=== PATIENT | female | born 2000 | race Caucasian/White ===

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

== ENCOUNTER → 2018-01-01 | Outpatient (CLI) | payer BC ==
--- NOTE | 2018-01-01 12:50 | US ---
EXAMINATION TYPE: US abdomen complete DATE OF EXAM: 01/01/2018 COMPARISON: NONE CLINICAL HISTORY: Abdominal Pain R10.84. EXAM MEASUREMENTS: Liver Length: 11.8 cm Gallbladder Wall: 0.1 cm CBD: 0.1 cm Spleen: 9.7 cm Right Kidney: 11.1x 3.4 x 3.6 cm Left Kidney: 10.6 x 4.3 x 3.8 cm Pancreas: wnl Liver: wnl Gallbladder: wnl Evidence for sonographic Stern's sign: No CBD: wnl Spleen: wnl Right Kidney: wnl Left Kidney: wnl Upper IVC: wnl Abd Aorta: wnl The liver is homogenous. The intrahepatic portion of the IVC and proximal abdominal aorta are within normal limits. There is no evidence of cholelithiasis. Common bile duct is unremarkable. The visu alized portions of the pancreas are homogenous. The spleen is unremarkable. Kidneys are symmetric a nd free of hydronephrosis. No renal lesions are seen. IMPRESSION: Unremarkable abdominal ultrasound. No sonographic evidence of cholelithiasis or acute cho lecystitis.
--- NOTE | 2018-01-01 13:25 | US ---
EXAMINATION TYPE: US pelvis complete transvag DATE OF EXAM: 01/01/2018 COMPARISON: NONE CLINICAL HISTORY: Abdominal Pain R10.84. TECHNIQUE: Transvaginal (TV) and Transabdominal (TA) . Transabdominal sonographic images of the pel vis were acquired. Transvaginal sonographic images were medically necessary to better assess the fol lowing anatomy: better visualization uterus Date of LMP: 12/16/2017 EXAM MEASUREMENTS: Uterus: 7.7 x 2.5 x 4.2 cm Endometrial Stripe: 0.5 cm Right Ovary: 2.2 x 1.2 x 2.2 cm Left Ovary: 2.2 x 1.9 x 1.4 cm 1. Uterus: Anteverted cervical area 1.2 x 0.8 x 1.1 cm echogenic structure 2. Endometrium: wnl 3. Right Ovary: Follicular changes 4. Left Ovary: Nuclear changes 5. Bilateral Adnexa: wnl 6. Posterior cul-de-sac: free fluid 2.5 cm IMPRESSION: 1. Posterior cervical 0.2 cm lesion. Although no vascular stalk is appreciated this could represent a polyp or mass and direct visualization is recommended. 2. Scant amount of free fluid, likely physiologic in nature. Bilateral ovarian follicles are also lik dior physiologic.
== END | disposition home or self-care (01) ==
LOC: RADUSWWP 10:08
PROVIDERS: ATTEND Family Medicine
DX: N88.8 Other specified noninflammatory disorders of cervix uteri (principal); R10.84 Generalized abdominal pain
CPT/HCPCS: 76700; 76830; 76856

== ENCOUNTER → 2018-12-30 | Outpatient (CLI) | payer BC ==
[2018-12-31 02:15] LABS: Shrimp IgE <0.10 kU/L; Walnut IgE (Food) <0.10 kU/L
[2018-12-31 13:36] LABS: Beef IgE <0.35 kU/L (<0.35); Beef IgE Class CLASS 0; Crab IgE <0.35 kU/L (<0.35); Crab IgE Class CLASS 0; Lettuce IgE Class CLASS 0; Pork IgE Class CLASS 0; Salmon IgE <0.35 kU/L (<0.35); Salmon IgE Class CLASS 0
[2018-12-31 13:37] LABS: Onion IgE <0.35 kU/L (<0.35); Onion IgE Class CLASS 0; Yeast Bakers/Brew IgE <0.35 kU/L (<0.35)
[2018-12-31 13:38] LABS: Apple IgE Class CLASS 0; Celery IgE <0.35 kU/L (<0.35); Celery IgE Class CLASS 0; Chicken IgE Class CLASS 0; Gluten IgE Class CLASS 0; Lobster IgE <0.35 kU/L (<0.35); Lobster IgE Class CLASS 0
[2018-12-31 13:39] LABS: Avocado Class CLASS 0; Banana IgE Class CLASS 0; Chocolate IgE Class CLASS 0; Coffee IgE <0.35 kU/L (<0.35); Coffee IgE Class CLASS 0; Cow's Milk IgE Class CLASS 0; Egg White IgE <0.35 kU/L (<0.35); Hazelnut IgE <0.35 kU/L (<0.35); Hazelnut IgE Class CLASS 0; Kiwi IgE <0.35 kU/L (<0.35); Latex IgE Class CLASS 0; Peanut IgE <0.35 kU/L (<0.35); Potato IgE <0.35 kU/L (<0.35); Potato IgE Class CLASS 0; Soybean IgE <0.35 kU/L (<0.35); Tea IgE <0.35 kU/L (<0.35)
== END | disposition home or self-care (01) ==
LOC: LABWHC1 16:07
PROVIDERS: ATTEND Nurse Practitioner Family
DX: L50.0 Allergic urticaria (principal)
CPT/HCPCS: 36415; 86001; 86003

== ENCOUNTER → 2021-07-11 | Outpatient (CLI) | payer OTHER ==
[2021-07-11 18:34] LABS: Basophils # (A) 0.02 X 10*3/uL (0.00-0.10); Basophils % (A) 0.3 %; Eosinophils # (A) 0.07 X 10*3/uL (0.04-0.35); Eosinophils % (A) 1.2 %; HCT 44.9 % (37.2-46.3); Immature Grans, Automated 0.3 %; Lymphocytes # (A) 1.37 X 10*3/uL (0.90-5.00); Lymphocytes % (A) 22.9 %; MCH 29.8 pg (27.0-32.0); MCHC 33.4 g/dL (32.0-37.0); MCV 89.1 fL (80.0-97.0); Mean Platelet Volume 11.5 fL (9.5-12.2); NRBC Per 100 WBC 0 /100 WBCS (0.0-0.0); Neutrophils % (A) 70.3 %; Platelet Count 203 X 10*3/uL (140-440); RBC 5.04 X 10*6/uL (4.10-5.20); RDW 12.2 % (11.5-14.5); WBC 5.98 X 10*3/uL (4.50-10.00)
[2021-07-12 01:27] LABS: Follicle Stimulating Hormone 5.3 mIU/mL; T4, Free (Free Thyroxine) 1.01 ng/dL (0.800-1.800)
[2021-07-12 01:41] LABS: African American GFR (CKD) 123.2 (60.0-200.0); Albumin/Globulin Ratio 2.12 (1.60-3.17); Anion Gap 12.5 mmol/L (10.00-18.00); BUN/Creat Ratio 12.68 Ratio (12.00-20.00); Calcium 9.7 mg/dL (8.7-10.3); Carbon Dioxide 23.6 mmol/L (20.0-27.5); Globulin 2.3 g/dL (1.6-3.3); Non-African American GFR(CKD) 106.3 (60.0-200.0); Potassium 4.2 mmol/L (3.5-5.5); Total Bilirubin 2.3 mg/dL (0.30-1.20); Total Protein 7.3 g/dL (6.2-8.2)
== END | disposition home or self-care (01) ==
LOC: LABWHC1 12:19
PROVIDERS: ATTEND Physician Assistant
DX: N92.6 Irregular menstruation, unspecified (principal); R53.83 Other fatigue; R19.7 Diarrhea, unspecified
CPT/HCPCS: 36415; 80053; 83001; 84439; 84443; 85025

== ENCOUNTER → 2023-08-29 | Outpatient (CLI) | payer OTHER ==
[2023-08-29 18:04] LABS: Basophils # (A) 0.04 X 10*3/uL (0.00-0.10); Basophils % (A) 0.3 %; Eosinophils % (A) 1.7 %; HCT 39.5 % (37.2-46.3); HGB 13.3 g/dL (12.0-15.0); Lymphocytes # (A) 1.43 X 10*3/uL (0.90-5.00); Lymphocytes % (A) 12.1 %; MCHC 33.7 g/dL (32.0-37.0); MCV 92.1 FL (80.0-97.0); Mean Platelet Volume 11.5 FL (9.5-12.2); Monocytes % (A) 5.1 %; NRBC Per 100 WBC 0 X 10*3/uL (0.00-0.01); Neutrophils # (A) 9.46 X 10*3/uL (1.80-7.70); Neutrophils % (A) 79.7 %; Platelet Count 169 X 10*3/uL (140-440); RBC 4.29 X 10*6/uL (4.10-5.20); RDW 13.2 % (11.5-14.5); WBC 11.86 X 10*3/uL (4.50-10.00)
[2023-08-29 18:29] LABS: ALT 14 U/L (8-44); AST 20 U/L (13-35); Albumin 3.9 g/dL (3.8-4.9); Alkaline Phosphatase 86 U/L (41-126); Blood Urea Nitrogen 7.8 mg/dL (9.0-27.0); Calcium 9.5 mg/dL (8.7-10.3); Carbon Dioxide 18.6 mmol/L (21.6-31.8); Chloride 104 mmol/L (96-109); Globulin 2.6 g/dL (1.6-3.3); Glucose 109 mg/dL (70-110); Potassium 3.8 mmol/L (3.5-5.5); Sodium 136 mmol/L (135-145); Total Bilirubin 0.7 mg/dL (0.3-1.2); Total Protein 6.5 g/dL (6.2-8.2)
== END | disposition home or self-care (01) ==
LOC: LABWHC1 12:36
PROVIDERS: ATTEND Obstetrics & Gynecology
DX: I45.6 Pre-excitation syndrome (principal); R00.2 Palpitations; R53.83 Other fatigue; R06.02 Shortness of breath; R42 Dizziness and giddiness; R00.0 Tachycardia, unspecified
CPT/HCPCS: 36415; 80053; 84443; 85025; 93005

== ENCOUNTER 2023-11-26 10:35 | Inpatient (IN) | payer OTHER ==
[2023-11-26] MEDS ORDERED: LIDOCAINE 0.5% (PF) 5 MG/ML (50 ML SDV) SQ PRN (11:13)
[2023-11-26] MEDS ORDERED: TERBUTALINE 1 MG/ML VIAL SQ PRN (11:13)
[2023-11-26] MEDS ORDERED: TRANEXAMIC 1,000 MG/100ML-NACL 1,000 MG in EMPTY BAG 1 BAG IV PRN (11:13)
[2023-11-26] MEDS ORDERED: miSOPROStoL 200 MCG TAB RECTAL PRN (11:13)
[2023-11-26] MEDS ORDERED: CARBOPROST TROMETHAMINE 250 MCG/ML 1 ML AMP IM PRN (11:13)
[2023-11-26] MEDS ORDERED: miSOPROStoL 200 MCG TAB PO PRN (11:13)
[2023-11-26] MEDS ORDERED: OXYTOCIN 10 UNIT/ML 1 ML VIAL IM PRN (11:13)
[2023-11-26] MEDS ORDERED: METHYLERGONOVINE 0.2 MG/ML 1 ML AMP IM PRN (11:13)
[2023-11-26] MEDS: LACTATED RINGERS 1,000 ML IV SCH ×2 (11:28→20:10)
[2023-11-26 11:29] LABS: Basophils % (A) 0 %; Eosinophils # (A) 0.2 k/uL (0-0.7); Eosinophils % (A) 1 %; HCT 43.5 % (34.0-46.0); Lymphocytes # (A) 1.5 k/uL (1.0-4.8); Lymphocytes % (A) 14 %; MCH 31.8 pg (25.0-35.0); MCHC 34.5 g/dL (31.0-37.0); MCV 92.1 fL (80.0-100.0); Mean Platelet Volume 10.2; Monocytes # (A) 0.5 k/uL (0-1.0); Monocytes % (A) 4 %; Neutrophils # (A) 8.8 k/uL (1.3-7.7); Neutrophils % (A) 80 %; Platelet Count 152 k/uL (150-450); RBC 4.72 m/uL (3.80-5.40); RDW 13.1 % (11.5-15.5); WBC 11.1 k/uL (3.8-10.6)
[2023-11-26] MEDS ORDERED: fentaNYL (PF) 50 MCG/ML 5 ML AMP ONE (12:05)
[2023-11-26] MEDS ORDERED: ROPIVACAINE 5 MG/ML 30 ML VIAL ONE (12:05)
[2023-11-26] MEDS ORDERED: SODIUM CHLORIDE 0.9% 250 ML BAG ONE (12:05)
--- NOTE | 2023-11-26 12:10 | P.HPOB ---
History of Present Illness H&P Date: 11/26/23 Chief Complaint: labor Ms. Garibay is a 23 year old at 40 weeks and 2 days with EDC of 11/24/23 who presents with regular uterine contractions and is found to be in active labor. Hr has been complicated by maternal anxiety and depression for which she has taken Zoloft 50mg daily throughout the . The fetus is estimated to be in the 40%ile for growth based on a 32w5d ulttrasound. work-up: blood type O positive, antibody screen negative, rubella immune, VDRL non-reactive, HBsAg negative, HIV negative, HCV Ab non-reactive, gonorrhea negative, chlamydia negative, 1 hour GTT wnl, GBS negative. 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 History of Any Multi-Drug Resistant Organisms: None Reported Past Surgical History: Tonsillectomy Past Anesthesia/Blood Transfusion Reactions: No Reported Reaction Past Psychological History: Anxiety, Depression Smoking Status: Never smoker Past Alcohol Use History: None Reported Past Drug Use History: None Reported - Past Family History Mother Family Medical History: No Reported History Medications and Allergies Home Medications Medication Instructions Recorded Confirmed Type Omeprazole [PriLOSEC] 1 tab PO DAILY 11/26/23 11/26/23 History Vit No.179/Iron/Folic 1 tab PO DAILY 11/26/23 11/26/23 History [ Tablet] Sertraline [Zoloft] 1 tab PO DAILY 11/26/23 11/26/23 History Allergies Allergy/AdvReac Type Severity Reaction Status Date / Time No Known Allergies Allergy Verified 11/26/23 10:50 Exam Vital Signs Temp Pulse Resp BP Pulse Ox 11/26/23 11:45 97.3 F L 78 18 125/83 97 11/26/23 11:12 97.3 F L 78 18 125/83 97 Intake and Output 11/25/23 11/26/23 11/26/23 22:59 06:59 14:59 Other: Weight 79.379 kg Focused physical exam is performed. This is a healthy-appearing in no apparent distress. Breathing is non-labored. Abdomen is gravid and non-tender. Cervical exam is deferred as the patient is in the position to receive epidural anesthesia at this time. Per recent OB nurse exam she is dilated to 6cm. Extremities non-tender and non-edematous. heart tones are Category I and tocometer is graphing contractions every 2-4 minutes. Results Result Diagrams: 11/26/23 11:19 Abnormal Lab Results - Last 24 Hours (Table) 11/26/23 Range/Units 11:19 WBC 11.1 H (3.8-10.6) k/uL Neutrophils # 8.8 H (1.3-7.7) k/uL Assessment and Plan Assessment: 23 year old at 40 weeks and 2 day presenting in spontaneous active labor Plan: Admit, epidural prn, EFM and tocometer, anticipate vaginal delivery.
[2023-11-26] MEDS: OXYTOCIN 30 UNITS/500 ML NS 30 UNIT in SALINE 1 500ML.BAG IV SCH (18:04)
[2023-11-26] MEDS: CITRIC ACID-SODIUM CITRATE 15 ML CUP PO ONE (18:59)
[2023-11-26] MEDS ORDERED: MORPHINE SULFATE (PF) 0.3 MG/0.3 ML SYR ONE (19:06)
[2023-11-26] MEDS ORDERED: MIDAZOLAM 2 MG/2 ML VIAL ONE (19:06)
[2023-11-26] MEDS ORDERED: fentaNYL (PF) 50 MCG/ML 2 ML AMP ONE (19:06)
[2023-11-26] MEDS ORDERED: KETOROLAC 15 MG/ML 1 ML VIAL ONE (19:06)
[2023-11-26] MEDS ORDERED: OXYTOCIN 30 UNITS/500 ML NS BAG IV ONE (19:06)
[2023-11-26] MEDS ORDERED: NALOXONE 0.4 MG/ML 1 ML VIAL IV PRN ×2 (19:44→20:11)
[2023-11-26] MEDS ORDERED: NALBUPHINE 10 MG/ML (10 ML MDV) IV PRN (19:44)
[2023-11-26] MEDS ORDERED: diphenhydrAMINE 50 MG/ML 1 ML VIAL IVP PRN ×3 (19:44→20:11)
[2023-11-26] MEDS ORDERED: ONDANSETRON 4 MG/2 ML VIAL IVP PRN ×2 (19:44→20:11)
[2023-11-26] MEDS: AZITHROMYCIN 500 MG in SODIUM CHLORIDE 0.9% 250 ML IVPB STA (20:10)
[2023-11-26] MEDS ORDERED: diphenhydrAMINE 25 MG CAP PO PRN (20:11)
[2023-11-26] MEDS ORDERED: ZOLPIDEM 5 MG TAB PO PRN (20:11)
[2023-11-26] MEDS ORDERED: diphenhydrAMINE 50 MG CAP PO PRN (20:11)
[2023-11-26] MEDS ORDERED: METOCLOPRAMIDE 5 MG/ML 2 ML VIAL IVP PRN (20:11)
--- NOTE | 2023-11-26 20:11 | P.OP ---
Date of Procedure: 11/26/23 Preoperative Diagnosis: 1. Term IUP at 40 weeks gestation 2. Persistent Category II Heart Tones 3. intolerance to pushing Postoperative Diagnosis: 1. Term IUP at 40 weeks gestation 2. Persistent Category II Heart Tones 3. intolerance to pushing 4. Occult cord prolapse Procedure(s) Performed: Primary Lower Transverse Section Implants: None Anesthesia: local Surgeon: Juany Mata Rn Medical Surgical #1: Lorena Miranda Estimated Blood Loss (ml): 916 Urine output (ml): 300 (alfonso colored) Pathology: none sent Condition: stable Disposition: floor Indications for Procedure: Ms. Garibay is a 23 year old at 40 weeks and 2 days gestation who presented to labor and delivery in active labor. She was expectantly managed and did make slow change to 9 cm over the course of an afternoon. The fetus did begin to have recurrent late and variable decelerations which improved with repositioning and IV fluids. The patient did eventually reach complete, however with every pushing effort the fetus would have prolonged decelerations down to the 70s. We had a patient centered huddle during which time section was recommended for maternal and safety at this time. The risks, benefits, and alternatives to section were discussed with the patient including risk of bleeding, infection, damage to surrounding structures including bladder/bowels/ureters, and post-operative VTE. The patient understands these risks and desires to proceed with section. Operative Findings: Occult cord prolapse was noted after hysterotomy. Clear amniotic fluid appreciated. Viable male in cephalic presentation with significant caput. Apgars are pending. Weight 8 pounds and 6 ounces. Normal uterus, bilateral fallopian tubes, and ovaries. Description of Procedure: The patient was taken back to the operating room where spinal anesthesia was found to be adequate. Two grams of Ancef were given for infection prophylaxis. Vaginal preparation was done. She was prepared and draped in the dorsal supine position with a leftward tilt. A Pfannenstiel skin incision was made with the scalpel. The incision was carried down to the fascia with a bovie. The fascia was incised and extended laterally with Toledo scissors. The superior aspect of the fascia was grasped with the Michael clamps. The underlying rectus muscle was dissected off sharply with Toledo scissors. In a similar fashion, the inferior aspect of the fascia was elevated with Michael clamps and the rectus muscle and pyramidalis were dissected off. Excellent hemostasis was achieved with the bovie. The rectus muscle was in the midline down to the level of the pubic symphysis. Pre-peritoneal fatty tissue was bluntly dissected to expose the peritoneum. The peritoneum was found to be free of adherent bowel and entered sharply with Toledo scissors. The peritoneal incision was extended superiorly and inferiorly to the bladder reflection with good visualization of the bladder. The bladder blade was inserted and vesicouterine peritoneum was identified. Intraabdominal survey revealed scant, clear peritoneal fluid and the thinned-out lower uterine segment. The vesicouterine peritoneum was opened with scissors and the bladder flap was developed. The bladder blade was repositioned to keep the bladder out of the operative field. The lower uterine segment was incised with a scalpel. Clear fluid was noted. The uterine incision was extended bluntly with lateral and upward traction. The fetus was in cephalic presentation. The head was elevated out of the pelvis with special attention paid to avoid using the uterine incision as a fulcrum. Gentle fundal pressure was applied once the head was brought into the incision. The was delivered with no difficulty and was noted to be crying spontaneously. The mouth and nose were suctioned with a bulb. The cord was clamped and cut. The infant was handed off to the flitch hanger. IV oxytocin was initiated to facilitate uterine contractions. The placenta was delivered intact with manual massage of uterine fundus. The uterus was then exteriorized and the inside of the uterus was gently wiped with a lap sponge to assure complete removal of placental membranes. The uterine incision was closed with 0-Vicryl suture in a running locked fashion. A second imbricating layer was placed with 0-Vicryl. The ovaries and tubes were found to be normal. The uterus, tubes, and ovaries were then gently returned to the abdominal cavity. The abdomen was copiously suction irrigated. The uterine incision was reinspected and excellent hemostasis was noted. The fascial layer was closed with a 0-Vicryl suture. The subcutaneous tissue was reapproximated with 2-0 Plain Gut. The skin was closed with 4-0 Monocryl in a subcuticular fashion.The patient tolerated the procedure well. All the counts were correct times two. The patient was taken to the recovery room in a stable condition. A physician surgical services coordinator was utilized for the entire procedure due to the need for tissue retraction, dissection of vital structures, prevention and management of blood loss, and reduction in overall operative and anesthesia time as is the standard of care.
[2023-11-26] MEDS ORDERED: MORPHINE PCA 50 MG/50 ML BAG IV PRN (20:17)
[2023-11-26] MEDS: ACETAMINOPHEN TAB 500 MG TAB PO SCH (22:05)
[2023-11-27] MEDS: KETOROLAC 15 MG/ML 1 ML VIAL IVP SCH (01:35)
[2023-11-27] MEDS: IBUPROFEN 600 MG TAB PO SCH (02:53)
[2023-11-27 05:59] LABS: Basophils % (A) 0 %; Eosinophils % (A) 0 %; HCT 35.4 % (34.0-46.0); HGB 12.3 gm/dL (11.4-16.0); Lymphocytes # (A) 1.6 k/uL (1.0-4.8); Lymphocytes % (A) 9 %; MCH 32.1 pg (25.0-35.0); MCHC 34.8 g/dL (31.0-37.0); MCV 92.2 fL (80.0-100.0); Mean Platelet Volume 11.5; Monocytes # (A) 0.9 k/uL (0-1.0); Monocytes % (A) 5 %; Neutrophils % (A) 85 %; Platelet Count 128 k/uL (150-450); RBC 3.85 m/uL (3.80-5.40); RDW 13.5 % (11.5-15.5); WBC 17.7 k/uL (3.8-10.6)
[2023-11-27] MEDS: SENNOSIDES-DOCUSATE SODIUM 1 EACH TAB PO SCH (07:53)
--- NOTE | 2023-11-27 10:58 | P.PNOBGPC ---
Subjective - Subjective Principal diagnosis: s/p primary section Interval history: The patient is doing well this morning and had no acute events overnight. She has no complaints this morning. She reports minimal lochia, ambulating, and eating/drinking without nausea or vomiting. She has yet to void after valadez catheter removal. She is her infant without difficulty. She denies chest pain, shortness of breathing, fevers, or chills overnight. She denies pain or swelling in the legs. Patient reports: Reports appetite normal, Reports pain well controlled, Reports ambulating normally : doing well Objective - Vital Signs Latest vital signs: Vital Signs Temp Pulse Resp BP Pulse Ox 11/27/23 10:00 16 11/27/23 08:00 98.5 F 68 16 103/63 98 11/27/23 04:30 98.1 F 89 15 113/71 95 11/27/23 00:21 90 15 11/26/23 23:55 98.6 F 90 15 121/73 95 11/26/23 22:00 98.2 F 99 16 116/55 98 11/26/23 21:45 98 16 116/55 95 11/26/23 21:30 98 16 122/58 96 11/26/23 21:15 98 15 122/58 98 11/26/23 21:00 98.0 F 92 16 119/57 96 11/26/23 20:45 85 16 125/67 95 11/26/23 20:30 109 H 15 118/75 99 11/26/23 20:21 16 11/26/23 20:15 97.8 F 87 16 130/74 99 11/26/23 20:00 97.8 F 127 H 16 121/72 100 11/26/23 11:45 97.3 F L 78 18 125/83 97 11/26/23 11:12 97.3 F L 78 18 125/83 97 Intake and Output 11/26/23 11/27/23 11/27/23 22:59 06:59 14:59 Intake Total 440 Output Total 1736 1400 Balance -1296 -1400 Intake: Oral 440 Output: Urine 600 1400 Uretheral (Valadez) 500 Emesis 100 Estimated Blood Loss 916 Output, Quantitative 120 Blood Loss Other: Voiding Method Indwelling Catheter Indwelling Catheter - Exam Extremities: Present: normal Abdomen: Present: normal appearance, aortic enlargement Incision: Present: normal, dry, dressed Uterus: Present: normal, firm - Labs Labs: Abnormal Lab Results - Last 24 Hours (Table) 11/26/23 11/27/23 Range/Units 11:19 05:42 WBC 11.1 H 17.7 H (3.8-10.6) k/uL Plt Count 128 L (150-450) k/uL Neutrophils # 8.8 H 15.0 H (1.3-7.7) k/uL Assessment and Plan Assessment: 23 year old PPD#1 s/p Primrary 2/2 persistent Category II FHTs and intolerance of pushing Plan: 1. Post-operative. Patient meeting all post-op milestones appropriately. Continue to monitor for void. 2. Viable male infant. Doing well at bedside, well. s/p circumcision. Dispo: Anticipate discharge home tomorrow
--- NOTE | 2023-11-27 11:14 | P.PN ---
Progress Note - Text Progress Note Date: 11/27/23 Postoperative day 1 status post section under epidural anesthesia, and epidural morphine given for postoperative analgesia, patient doing well, there is no anesthesia related complications, Patient had no headache, vital signs stable , Assessment and plan= postop day 1 status post , doing well there is no anesthesia related complication.
[2023-11-28] MEDS: SIMETHICONE 80 MG CHEWABLE PO PRN (00:09)
[2023-11-28 00:17] VITALS: RESP 16
[2023-11-28 07:58] VITALS: BP 120/87; PULSE 91; TEMP 98.7
--- NOTE | 2023-11-28 08:29 | P.DS ---
Providers Date of admission: 11/26/23 10:53 Expected date of discharge: 11/28/23 Attending physician: Juany Mata MD Primary care physician: Stated None Hospital Course: Ms. Garibay is a 23 year old now POD#2 s/p primary section for persistent category II FHTs remote from delivery and intolerance to pushing. The patient is doing well this morning and had no acute events overnight. She has no complaints this morning. She reports minimal lochia, passing flatus, voiding without difficulty, ambulating, and eating/drinking without nausea or vomiting. doing well at bedside, s/p circumcision. She denies chest pain, shortness of breathing, fevers, or chills overnight. She denies pain or swelling in the legs. Postoperative restrictions are reviewed with the patient including pelvic rest for 6 weeks, no lifting heavier than 15 pounds for 6 weeks. The patient is encouraged to call the office if she experiences any heavy bleeding, foul-smelling discharge, breast complaints, or any if she has any other concerns. She will follow up in the office with n 2 weeks for postoperative exam. She will go home with motrin, tylenol, and a 3-day supply of Oxycodone. All questions are answered. Assessment: 23 year old POD#1 s/p primary Patient Condition at Discharge: Good Plan - Discharge Summary New Discharge Prescriptions: New polyethylene glycoL 3350 [Miralax] 17 gm PO DAILY PRN #527 gm PRN Reason: Constipation Ibuprofen [Motrin] 600 mg PO Q6HR PRN #30 tab PRN Reason: Mild Pain (Scale 1 To 3) oxyCODONE HCL [Roxicodone] 5 mg PO Q6HR PRN 3 Days #12 tab PRN Reason: Breakthrough Pain Acetaminophen Tab [Tylenol] 650 mg PO Q6H PRN #30 tab PRN Reason: Mild Pain (Scale 1 To 3) No Action Sertraline [Zoloft] 1 tab PO DAILY Vit No.179/Iron/Folic [ Tablet] 1 tab PO DAILY Omeprazole [PriLOSEC] 1 tab PO DAILY Discharge Medication List Omeprazole [PriLOSEC] 1 tab PO DAILY 11/26/23 [History] Vit No.179/Iron/Folic [ Tablet] 1 tab PO DAILY 11/26/23 [History] Sertraline [Zoloft] 1 tab PO DAILY 11/26/23 [History] Acetaminophen Tab [Tylenol] 650 mg PO Q6H PRN #30 tab 11/28/23 [Rx] Ibuprofen [Motrin] 600 mg PO Q6HR PRN #30 tab 11/28/23 [Rx] oxyCODONE HCL [Roxicodone] 5 mg PO Q6HR PRN 3 Days #12 tab 11/28/23 [Rx] polyethylene glycoL 3350 [Miralax] 17 gm PO DAILY PRN #527 gm 11/28/23 [Rx] Follow up Appointment(s)/Referral(s): Juany Mata MD [STAFF PHYSICIAN] - 12/10/23 2:30 pm (Post appointment 01-07-2024 at 1:15pm) Activity/Diet/Wound Care/Special Instructions: Instructions 1. Do not begin any exercise program for 3 weeks. 2. Do not resume sexual relations for 6 weeks or longer if uncomfortable. 3. You may take tub baths or showers at any time. 4. You may use tampons if desired after 6 weeks. 5. Keep any areas repaired with stitches clean and dry. 6. If you are not nursing, wear a good fitting, supportive bra during the day and limit fluid intake for at least 1 week to prevent breast engorgement. 7. Call the office, , within the next week to make appointment for your 6 week checkup if it has not already been made. 8. Report any of the following occurrences to the doctor promptly: a. Heavy, excessive bleeding b. Chills, fever c. Burning or frequency of urination d. Pain or redness and breasts if nursing e. Increasing pain or swelling of vulva (stitches). In addition to the above instructions, the following additional should be followed: 1. No heavy lifting or straining (exercising) until after 6 week checkup. 2. Keep abdominal incision clean and dry: You may wear a dressing if more comfortable. 3. Make office appointment for 2 weeks after delivery date. Discharge Disposition: HOME SELF-CARE
== END 2023-11-28 15:30 | disposition home or self-care (01) | DRG 540 ==
LOC: FBPOP 10:35 → 4FBP 10:53
PROVIDERS: ADMIT Obstetrics & Gynecology; ATTEND Obstetrics & Gynecology
PROC: 10D00Z1 Extraction of Products of Conception, Low, Open Approach (ICD-10-PCS; principal; 2023-11-26 19:42)
DX: O48.0 Post-term pregnancy (principal); F32.A Depression, unspecified; O76 Abnormality in fetal heart rate and rhythm complicating labor and delivery; O69.0XX0 Labor and delivery complicated by prolapse of cord, not applicable or unspecified; O99.344 Other mental disorders complicating childbirth; F41.9 Anxiety disorder, unspecified; Z37.0 Single live birth; Z3A.40 40 weeks gestation of pregnancy; Z79.899 Other long term (current) drug therapy

== ENCOUNTER → 2024-05-29 | Outpatient (CLI) | payer OTHER ==
[2024-05-29 08:32] VITALS: BP 126/84; PULSE 77; RESP 17; TEMP 98.9
--- NOTE | 2024-05-29 09:02 | P.GSCN ---
History of Present Illness Consult date: 05/29/24 Requesting physician: Juany Mata History of present illness: Areli is a 23 year old female seen in consultation for Maty Jefferson regarding a left breast mass. She had an ultrasound on 05-09-24 which revealed an ill defined mass at 8:00 3 by 1 by 2.7 cm in size. The patient was seen by her supervisor carpenters and treated with antibiotics for a 2 cm lesion which decreased in size but did not go away completely. She noticed this about 1 months ago and was treated with two courses of antibiotics, Augmentin. She is breast feeding. Her baby is 6 months. With the antibiotics the lump shrunk but it did not go away, the pain was less on the antibiotics. The lump is still present and not as painful. She continues to breast-feed without difficulty, at times it does feel like on the left-sided it is pulling towards the lump. She has not noted any blood or change in the milk. Caffiene: 1 cup doffee/day nicotine: none chocolate: none BCP: used when she was on it for about 10 years for irregular periods note 05-15-24 Maty Jefferson reviewed Family History: none Hormonal History: menarche: 10 , breast feeding yes age at : 23 periods has not started them again since Surgical History: tonsil Medical History; none Social History; nicotine: none used to vape alcohol: none drugs: none Review of Systems - Constitutional Denies fever, Denies weight loss - EENT Eyes: denies blurred vision Ears: deny: decreased hearing, tinnitus Ears, nose, mouth and throat: Denies dysphagia - Breasts bilateral: as per HPI - Cardiovascular Denies chest pain, Denies shortness of breath - Respiratory Denies cough, Denies 7 - Gastrointestinal Reports as per HPI - Genitourinary Genitourinary: Denies dysuria, Denies hematuria - Musculoskeletal Reports as per HPI - Integumentary Denies rash, Denies unusual bruising - Neurological Reports headaches, Denies syncope - Psychiatric Reports as per HPI, Reports anxiety - Endocrine Reports as per HPI - Hematologic/Lymphatic Denies easy bleeding, Denies easy bruising - Allergic/Immunologic Reports as per HPI, Reports seasonal allergies Past Medical History Past Medical History: GERD/Reflux Additional Past Medical History / Comment(s): 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 History of Any Multi-Drug Resistant Organisms: None Reported Past Surgical History: Tonsillectomy Past Anesthesia/Blood Transfusion Reactions: No Reported Reaction Past Psychological History: Anxiety, Depression Smoking Status: Never smoker Past Alcohol Use History: None Reported Past Drug Use History: None Reported - Past Family History Mother Family Medical History: No Reported History Medications and Allergies Home Medications Medication Instructions Recorded Confirmed Type Omeprazole [PriLOSEC] 1 tab PO DAILY 11/26/23 11/26/23 History Vit No.179/Iron/Folic 1 tab PO DAILY 11/26/23 11/26/23 History [ Tablet] Sertraline [Zoloft] 1 tab PO DAILY 11/26/23 11/26/23 History Acetaminophen Tab [Tylenol] 650 mg PO Q6H PRN #30 tab 11/28/23 Rx Ibuprofen [Motrin] 600 mg PO Q6HR PRN #30 tab 11/28/23 Rx oxyCODONE HCL [Roxicodone] 5 mg PO Q6HR PRN 3 Days #12 tab 11/28/23 Rx polyethylene glycoL 3350 [Miralax] 17 gm PO DAILY PRN #527 gm 11/28/23 Rx Allergies Allergy/AdvReac Type Severity Reaction Status Date / Time No Known Allergies Allergy Verified 11/26/23 10:50 Surgical - Exam - General no distress - Eyes normal ocular movement - Neck trachea midline - Respiratory normal respiratory effort - Cardiovascular Rhythm: regular Heart Sounds: normal: S1, S2 - Abdomen Abdomen: soft, non tender, no guarding, no rigid, no rebound - Integumentary normal turgor - Neurologic no disoriented, no combative - Musculoskeletal normal gait - Psychiatric oriented to time, oriented to person, oriented to place, speech is normal, memory intact Breast Exam: BRA: sports bra XL to 2 XL inspection: Bilateral grade 2 ptosis Palpation: Right breast: Multi positional exam fibrocystic changes, no dominant masses or nodules of concern Right axilla: No adenopathy of concern Left breast: Multi positional exam fullness in the lower inner quadrant approximately 2 x 1 cm in size tender to palpation, otherwise no dominant masses or nodules of concern Right left axilla: No adenopathy of concern Breast are full bilaterally as patient is breast-feeding Results Ultrasound results on the left breast reveal a 3 x 2.7 cm ill-defined h eterogeneous hypoechoic area at the 8 o'clock position from 05-09-2024. Assessment and Plan Assessment: Impression: Persistent left 8 o'clock position fullness and tenderness in lactating breast Plan: repeat ultrasound of the left breast in two weeks then follow up CC: Maty Jefferson
== END ==
LOC: WWCWWP 07:50
PROVIDERS: ATTEND Surgery
DX: N64.4 Mastodynia (principal)

== ENCOUNTER → 2024-06-20 | Outpatient (CLI) | payer OTHER ==
--- NOTE | 2024-06-20 08:54 | USB ---
Reason for Exam: Clinical finding. Technique: Method: Targeted. Findings: The area of palpable concern of the left breast, the axilla of the left breast and the retroareolar of the left breast were scanned. A complete US of all four quadrants of the breast and retro-areolar region were reviewed. No solid or cystic masses are identified.. Overall Assessment: Negative, BI-RAD 1 Management: Screening Mammogram of both breasts at age 38. A clinical breast exam by your physician is recommended on an annual basis and results should be correlated with mammographic findings. This exam should not preclude additional follow-up of suspicious palpable abnormalities. Results were given to the patient verbally at the time of exam. [facility], , 06/20/2024 8:51 AM. Electronically signed and approved by: Evangelista Wu M.D. [facility]
== END | disposition home or self-care (01) ==
LOC: RADUSWWP 07:59
PROVIDERS: ATTEND Surgery
DX: N63.0 Unspecified lump in unspecified breast (principal)